=== PATIENT | male | born 1965 | race Caucasian/White ===

== ENCOUNTER 2024-05-07 19:46 | Emergency (ER) | payer SELFPAY ==
[~2024-05-07] VITALS: Ht 172.7 cm; Wt 72.6 kg
[2024-05-07] MEDS ORDERED: PROMETHAZINE HCL 25 MG/ML AMP IV ONE (20:05)
[2024-05-07] MEDS ORDERED: SODIUM CHLORIDE 0.9% 1,000 ML IV ONE (20:05)
[2024-05-07 20:20] LABS: BASO% 0.5 % (0-3); EOS% 0.9 % (0-8); HEMATOCRIT 38.4 % (39.0-50.0); HEMOGLOBIN 12.7 g/dl (14.0-18.0); IMMATURE GRANULOCYTES 0.5 % (0.0-5.0); LYMPH% 14.3 % (15-41); MEAN CELL VOLUME 85.1 fL CALC (80.0-100.0); MEAN CORPUSCULAR HGB 28.2 pG CALC (26.0-32.0); MEAN CORPUSCULAR HGB CONC 33.1 g/dL CAL (32.0-36.0); NEUT# 5.04 thou/uL (1.82-7.42); NEUT% 75.8 % (42-76); RED BLOOD COUNT 4.51 mill/uL (4.70-6.10)
[2024-05-07 20:33] LABS: ALBUMIN 3.9 g/dL (3.2-5.0); ALKALINE PHOSPHATASE 51 u/l (38-126); ANION GAP 8 (6-22 (CALC)); BILIRUBIN, TOTAL 0.4 mg/dL (0.2-1.3); BUN 17 mg/dL (9-20); BUN/CREATININE RATIO 16 (12-20 (CALC)); CARBON DIOXIDE 30 mmol/l (22-30); CHLORIDE 104 mmol/l (95-108); ESTIMATED GFR 88 ML/MIN (>=90 (CALC)); POTASSIUM 4.1 mmol/l (3.5-5.1); SGOT/AST 70 u/l (17-59); SODIUM 138 mmol/l (137-146); TOTAL PROTEIN 6.5 g/dL (6.3-8.2)
[2024-05-07 20:39] LABS: ACT PARTIAL THROMBO TIME 26.1 SECONDS (20.0-32.5)
[2024-05-07 20:40] LABS: PROTHROMBIN TIME 10.9 SECONDS (9.0-12.5)
[2024-05-07 20:45] VITALS: BP 139/89
[2024-05-07 21:00] VITALS: BP 143/82
[2024-05-07 21:15] VITALS: BP 133/89
[2024-05-07] MEDS ORDERED: ONDANSETRON4 MG PO (21:23)
[2024-05-07] MEDS ORDERED: OXYMETAZOLINE HCL 15 ML/BTL ONE (21:25)
[2024-05-07 21:30] VITALS: BP 118/68
[2024-05-07 21:45] VITALS: BP 118/68
== END 2024-05-07 21:45 | disposition home or self-care (01) | DRG 866 ==
LOC: ED 19:46
PROVIDERS: Family Medicine
DX: B34.9 Viral infection, unspecified (principal); R42 Dizziness and giddiness; I10 Essential (primary) hypertension; Z20.822 Contact with and (suspected) exposure to COVID-19
CPT/HCPCS: J2550